=== PATIENT | female | born 1965 | race Caucasian/White ===

== ENCOUNTER → 2020-02-12 | Outpatient (CLI) | payer MEDICAID ==
[~2020-02-12] MED LIST: ALBU18HF2 IH; AMIT25TA9 PO; AMLO2.5T45 PO; ASPI-1497 PO; ATOR20TA65 PO; CALC-30 PO; CARV6.2548 PO; CEFAZOLIN SODIUM 1000MG/VIAL ONE; CEVI30CA7 PO; CLOP75TA4 PO; CYCL10TA7 PO; DEXAMETHASONE 4MG/ML 1ML VIAL ONE; DULO30CA2 PO; EPHEDRINE SULFATE 50MG/ML VIAL ONE; FENTANYL CITRATE/PF 50MCG/ML 2ML VIAL ONE; FLUT16SP15 NS; FLUT1AER IH; FOLI-43 PO; GABA-290 PO; GLYCOPYRROLATE 0.2 MG/ML 2ML VIAL ONE; HYDR12.54 PO; HYDROMORPHONE HCL/PF 2MG/ML (OR) ONE; INSU100I24 SQ; LABETALOL HCL 5MG/ML VIAL 20ML IV ONE; LIDOCAINE HCL/PF 1% 10 MG/ML 5ML VIAL ONE; MIDAZOLAM HCL 2 MG/2 ML VIAL ONE; MONT10TA26 PO; MULT-9 PO; NEOSTIGMINE METHYLSULFATE 1MG/ML 10 ML VIAL ONE; OMEG1CAP46 PO; OMEP20TA2 PO; ONDANSETRON HCL 4MG/2ML INJ ONE; PRED5TAB PO; PROPOFOL 200MG/20ML VIAL IV ONE; SITA100T11 PO; SODIUM CHLORIDE 0.9% 10ML VIAL ONE; [UNRECOGNIZED DRUG - REMARK] SUBCUT
== END | disposition home or self-care (01) ==
LOC: LAB 07:35
PROVIDERS: ATTEND Neurological Surgery
DX: Z01.818 Encounter for other preprocedural examination (principal); Z11.59 Encounter for screening for other viral diseases
CPT/HCPCS: C9803; U0003

== ENCOUNTER 2020-02-13 05:31 | Inpatient (IN) | payer MEDICAID ==
[2020-02-13] VITALS (34 sets, daily range): BP systolic 113–154; BP diastolic 42–97
[~2020-02-13] VITALS: Ht 160 cm; Wt 90.7 kg
[2020-02-13 06:20] LABS: BASOPHILS % 0.4 % (0.0-2.0); EOSINOPHILS % 2.5 % (0.0-5.0); LYMPHOCYTES % 21.5 % (20.0-50.0); MEAN CORPUSCULAR HEMOGLOBIN 27.4 pg (28.0-32.0); MEAN PLATELET VOLUME 8.3 fl (7.4-10.4); MONOCYTES % 6.1 % (2.0-8.0); NEUTROPHILS % 69.5 % (40.0-76.0); PLATELET 221 x1000/uL (130-400); RED BLOOD CELL COUNT 4.75 mill/uL (4.2-5.4); RED CELL DISTRIBUTION WIDTH 14.5 % (11.6-14.6)
[2020-02-13 06:29] LABS: INR 0.9; PARTIAL THROMBOPLASTIN TIME 25.4 sec (23.4-31.0)
[2020-02-13 06:39] LABS: CLARITY URINE CLEAR (CLEAR); COLOR URINE YELLOW (YELLOW); KETONES URINE TRACE (NEGATIVE); LEUKOCYTE ESTERASE URINE NEGATIVE (NEGATIVE); NITRITE URINE NEGATIVE (NEGATIVE); OCCULT BLOOD URINE NEGATIVE (NEGATIVE); PROTEIN URINE TRACE (NEGATIVE); SPECIFIC GRAVITY URINE 1.044 (1.005-1.030)
[2020-02-13 06:43] LABS: CHLORIDE 103 mEq/L (98-107)
[2020-02-13] MEDS ORDERED: THROMBIN (BOVINE) 5000 UNITS/VIAL TOP ONE (06:44)
[2020-02-13] MEDS ORDERED: LIDOCAINE HCL/EPINEPHRINE 1%-EPI 1:100,000 20 ML VIAL ONE ×2 (06:45→06:50)
[2020-02-13] MEDS ORDERED: BACITRACIN 50,000 UNITS/VIAL ONE (06:45)
[2020-02-13] MEDS ORDERED: DEXT 5%/0.45% NACL 500ML 500 ML IV ONE (07:00)
[2020-02-13] MEDS ORDERED: ROCURONIUM BROMIDE 10MG/ML VIAL 5ML IV ONE (07:04)
[2020-02-13] MEDS ORDERED: ALBUTEROL 90MCG/PUFF 17GM INHALER INH ONE (07:43)
[2020-02-13] MEDS ORDERED: LABETALOL 5MG/ML SYR 20 MG/4 ML SYRINGE IV PRN (08:30)
[2020-02-13] MEDS ORDERED: ONDANSETRON HCL 4MG/2ML INJ IV PRN (08:30)
[2020-02-13] MEDS ORDERED: MEPERIDINE HCL/PF 25MG/ML CPJ IV PRN (08:30)
[2020-02-13] MEDS ORDERED: HYDROMORPHONE HCL/PF 2MG/ML CPJ IV PRN (08:30)
[2020-02-13] MEDS ORDERED: ALBU18HF2 IH (09:19)
[2020-02-13] MEDS ORDERED: FLUT1AER IH (09:19)
[2020-02-13] MEDS ORDERED: [UNRECOGNIZED DRUG - REMARK] SUBCUT (09:19)
[2020-02-13] MEDS ORDERED: INSU100I24 SQ (09:19)
[2020-02-13] MEDS ORDERED: CLOP75TA4 PO (09:19)
[2020-02-13] MEDS ORDERED: GABA-290 PO (09:19)
[2020-02-13] MEDS ORDERED: ASPI-1497 PO (09:19)
[2020-02-13] MEDS ORDERED: PRED5TAB PO (09:19)
[2020-02-13] MEDS ORDERED: SITA100T11 PO (09:19)
[2020-02-13] MEDS ORDERED: CALC-30 PO (09:21)
[2020-02-13] MEDS ORDERED: OMEG1CAP46 PO (09:21)
[2020-02-13] MEDS ORDERED: OMEP20TA2 PO (09:26)
[2020-02-13] MEDS ORDERED: MONT10TA26 PO (09:26)
[2020-02-13] MEDS ORDERED: CEVI30CA7 PO (09:26)
[2020-02-13] MEDS ORDERED: DULO30CA2 PO (09:26)
[2020-02-13] MEDS ORDERED: FOLI-43 PO (09:26)
[2020-02-13] MEDS ORDERED: FLUT16SP15 NS (09:26)
[2020-02-13] MEDS ORDERED: HYDR12.54 PO (09:28)
[2020-02-13] MEDS ORDERED: AMLO2.5T45 PO (09:28)
[2020-02-13] MEDS ORDERED: CARV6.2548 PO (09:28)
[2020-02-13] MEDS ORDERED: ATOR20TA65 PO (09:28)
[2020-02-13] MEDS ORDERED: AMIT25TA9 PO (09:30)
[2020-02-13] MEDS ORDERED: MULT-9 PO (09:30)
[2020-02-13] MEDS ORDERED: CYCL10TA7 PO (09:30)
[2020-02-13] MEDS ORDERED: NICARDIPINE 100 MG in SODIUM CHLORIDE 0.9% 60 ML IV PRN (10:30)
[2020-02-13] MEDS ORDERED: IPRATROPIUM/ALBUTEROL 0.5-3(2.5)MG/3ML NEB HHN NR (10:45)
[2020-02-13] MEDS ORDERED: INSULIN LISPRO(HUMALOG)300 UNIT/3ML VIAL SUBCUT NR (11:00)
[2020-02-13] MEDS ORDERED: ONDANSETRON INJ IV PRN (11:15)
[2020-02-13] MEDS ORDERED: NALOXONE INJ IV PRN (11:15)
[2020-02-13] MEDS ORDERED: HYDROMORPHONE PCA 10MG/50ML IV PRN (11:15)
[2020-02-13] MEDS ORDERED: DEXTROSE 50% WATER 50ML SYRINGE IV PRN (12:45)
[2020-02-13] MEDS: BLOOD SUGAR DIAGNOSTIC STRIP TEST SCH ×3 (13:00→20:33)
[2020-02-13] MEDS ORDERED: INSULIN LISPRO 100 UNITS/ML SUBCUT NR (13:15)
[2020-02-13] MEDS: INSULIN LISPRO 100 UNITS/ML SUBCUT SCH ×3 (13:16→20:44)
[2020-02-13] MEDS ORDERED: CEFAZOLIN SODIUM 1000MG/VIAL IV SCH (14:00)
[2020-02-13] MEDS: MORPHINE SULFATE 4 MG/ML CPJ (NOT FOR IM USE) IV PRN ×2 (15:11→18:38)
[2020-02-13] MEDS: NICARDIPINE 100 MG in SODIUM CHLORIDE 0.9% 60 ML IV PRN ×2 (15:35→23:48)
[2020-02-13] MEDS ORDERED: IPRATROPIUM/ALBUTEROL 0.5-3(2.5)MG/3ML NEB HHN PRN (16:00)
[2020-02-13] MEDS: CEFAZOLIN 1000MG PREMIX 50 ML IV SCH ×2 (16:29→21:02)
[2020-02-13] MEDS ORDERED: POTASSIUM CHLORIDE 20MEQ TABLET SR PO NR (16:30)
[2020-02-13] MEDS ORDERED: PNEUMOCOCCAL 23-VAL P-SAC VAC 0.5 ML IM ONE (17:00)
[2020-02-13] MEDS: DULOXETINE HCL 30MG DR CAPSULE PO SCH (17:26)
[2020-02-13] MEDS: BUDESONIDE 0.5MG/2ML NEB HHN SCH (19:55)
[2020-02-13] MEDS: IPRATROPIUM/ALBUTEROL 0.5-3(2.5)MG/3ML NEB HHN SCH (19:55)
[2020-02-13] MEDS: CARVEDILOL 6.25 MG TABLET PO SCH (20:33)
[2020-02-13] MEDS: MONTELUKAST SODIUM 10MG TABLET PO SCH (20:33)
[2020-02-13] MEDS: ATORVASTATIN CALCIUM 20MG TABLET PO SCH (20:33)
[2020-02-13] MEDS: DEXT 5%/LACTATED RINGERS 1,000 ML IV SCH (20:56)
[2020-02-13] MEDS ORDERED: MONTELUKAST SODIUM 10MG TABLET PO SCH (21:00)
[2020-02-13] MEDS: INSULIN GLARGINE UD 100 UNITS/ML SYR SUBCUT SCH (21:03)
[2020-02-14] VITALS (59 sets, daily range): BP systolic 96–139; BP diastolic 50–88
[2020-02-14] MEDS: MORPHINE SULFATE 4 MG/ML CPJ (NOT FOR IM USE) IV PRN ×3 (01:36→20:38)
[2020-02-14] MEDS: IPRATROPIUM/ALBUTEROL 0.5-3(2.5)MG/3ML NEB HHN SCH ×4 (01:51→21:12)
[2020-02-14] MEDS: DEXT 5%/LACTATED RINGERS 1,000 ML IV SCH (05:47)
[2020-02-14] MEDS: OMEPRAZOLE 20MG CAPSULE EXTENDED RELEASE PO SCH (05:48)
[2020-02-14] MEDS: CEFAZOLIN 1000MG PREMIX 50 ML IV SCH ×3 (05:48→21:29)
[2020-02-14] MEDS: BLOOD SUGAR DIAGNOSTIC STRIP TEST SCH ×4 (05:48→20:39)
[2020-02-14] MEDS: NICARDIPINE 100 MG in SODIUM CHLORIDE 0.9% 60 ML IV PRN (06:15)
[2020-02-14] MEDS: INSULIN LISPRO 100 UNITS/ML SUBCUT SCH ×5 (06:16→21:32)
[2020-02-14] MEDS: BUDESONIDE 0.5MG/2ML NEB HHN SCH ×2 (08:41→21:09)
[2020-02-14] MEDS: AMITRIPTYLINE 25MG TABLET PO SCH (08:56)
[2020-02-14] MEDS: PREDNISONE 5MG TABLET PO SCH (08:57)
[2020-02-14] MEDS: CARVEDILOL 6.25 MG TABLET PO SCH ×2 (08:57→20:38)
[2020-02-14] MEDS: AMLODIPINE 2.5MG TABLET PO SCH (08:57)
[2020-02-14] MEDS: DULOXETINE HCL 30MG DR CAPSULE PO SCH ×2 (08:57→17:12)
[2020-02-14] MEDS: DOCUSATE SODIUM 100MG CAPSULE PO SCH ×2 (08:57→17:12)
[2020-02-14] MEDS: INSULIN GLARGINE UD 100 UNITS/ML SYR SUBCUT SCH ×2 (10:58→21:32)
[2020-02-14] MEDS ORDERED: FUROSEMIDE 20MG/2ML VIAL IV SCH (14:00)
[2020-02-14] MEDS: ATORVASTATIN CALCIUM 20MG TABLET PO SCH (20:35)
[2020-02-14] MEDS: MONTELUKAST SODIUM 10MG TABLET PO SCH (20:35)
[2020-02-15] VITALS: BP 100/53
[2020-02-15] MEDS: MORPHINE SULFATE 4 MG/ML CPJ (NOT FOR IM USE) IV PRN ×2 (00:38→10:46)
[2020-02-15] MEDS: IPRATROPIUM/ALBUTEROL 0.5-3(2.5)MG/3ML NEB HHN SCH ×5 (01:12→22:00)
[2020-02-15 04:00] VITALS: BP 111/53
[2020-02-15] MEDS: CEFAZOLIN 1000MG PREMIX 50 ML IV SCH ×2 (06:12→13:03)
[2020-02-15] MEDS: OMEPRAZOLE 20MG CAPSULE EXTENDED RELEASE PO SCH (06:37)
[2020-02-15] MEDS: BLOOD SUGAR DIAGNOSTIC STRIP TEST SCH ×4 (06:37→20:55)
[2020-02-15 06:46] LABS: CHLORIDE 104 mEq/L (98-107)
[2020-02-15 06:56] LABS: BASOPHILS % 0.2 % (0.0-2.0); EOSINOPHILS % 0.2 % (0.0-5.0); HEMOGLOBIN. 10.8 g/dL (12.0-16.0); LYMPHOCYTES % 13.1 % (20.0-50.0); MEAN CORPUSCULAR HEMOGLOBIN 27.5 pg (28.0-32.0); MEAN CORPUSCULAR VOLUME 81.7 fL (81.0-99.0); MEAN PLATELET VOLUME 8.4 fl (7.4-10.4); MONOCYTES % 5.4 % (2.0-8.0); NEUTROPHILS % 81.1 % (40.0-76.0); PLATELET 167 x1000/uL (130-400); RED BLOOD CELL COUNT 3.92 mill/uL (4.2-5.4); RED CELL DISTRIBUTION WIDTH 14.4 % (11.6-14.6)
[2020-02-15] MEDS: BUDESONIDE 0.5MG/2ML NEB HHN SCH ×3 (07:25→22:00)
[2020-02-15] MEDS: INSULIN LISPRO 100 UNITS/ML SUBCUT SCH ×4 (07:50→21:27)
[2020-02-15 08:00] VITALS: BP 104/59
[2020-02-15] MEDS: DULOXETINE HCL 30MG DR CAPSULE PO SCH ×2 (08:46→16:39)
[2020-02-15] MEDS: DOCUSATE SODIUM 100MG CAPSULE PO SCH ×2 (08:46→16:39)
[2020-02-15] MEDS: PREDNISONE 5MG TABLET PO SCH (08:46)
[2020-02-15] MEDS: AMLODIPINE 2.5MG TABLET PO SCH (08:49)
[2020-02-15] MEDS: CARVEDILOL 6.25 MG TABLET PO SCH ×2 (08:50→20:56)
[2020-02-15] MEDS: INSULIN GLARGINE UD 100 UNITS/ML SYR SUBCUT SCH ×2 (10:42→21:27)
[2020-02-15] MEDS: AMITRIPTYLINE 25MG TABLET PO SCH (10:42)
[2020-02-15] MEDS ORDERED: POTASSIUM CHLORIDE 20MEQ/PACKET PO NR (11:30)
[2020-02-15 12:00] VITALS: BP 134/64
[2020-02-15] MEDS ORDERED: INSULIN GLARGINE UD 100 UNITS/ML SYR SUBCUT NR (12:00)
[2020-02-15 16:00] VITALS: BP 123/70
[2020-02-15 20:00] VITALS: BP 126/63
[2020-02-15] MEDS: FAMOTIDINE 20MG TABLET PO SCH (20:56)
[2020-02-15] MEDS: MONTELUKAST SODIUM 10MG TABLET PO SCH (20:56)
[2020-02-15] MEDS: ATORVASTATIN CALCIUM 20MG TABLET PO SCH (20:56)
[2020-02-16] VITALS: BP 114/58
[2020-02-16 04:00] VITALS: BP 125/66
[2020-02-16] MEDS: BLOOD SUGAR DIAGNOSTIC STRIP TEST SCH ×4 (05:16→20:40)
[2020-02-16] MEDS: INSULIN LISPRO 100 UNITS/ML SUBCUT SCH ×4 (06:11→21:27)
[2020-02-16 06:34] LABS: CHLORIDE 104 mEq/L (98-107)
[2020-02-16 06:44] LABS: BASOPHILS % 0.5 % (0.0-2.0); EOSINOPHILS % 1.9 % (0.0-5.0); HEMATOCRIT. 34.9 % (36.0-48.0); HEMOGLOBIN. 11.8 g/dL (12.0-16.0); LYMPHOCYTES % 22.5 % (20.0-50.0); MEAN CORPUSCULAR HEMOGLOBIN 27.6 pg (28.0-32.0); MEAN CORPUSCULAR VOLUME 81.4 fL (81.0-99.0); MEAN PLATELET VOLUME 8.5 fl (7.4-10.4); MONOCYTES % 5.8 % (2.0-8.0); NEUTROPHILS % 69.3 % (40.0-76.0); PLATELET 187 x1000/uL (130-400); RED BLOOD CELL COUNT 4.29 mill/uL (4.2-5.4); RED CELL DISTRIBUTION WIDTH 14.7 % (11.6-14.6)
[2020-02-16 08:00] VITALS: BP 119/68
[2020-02-16] MEDS: IPRATROPIUM/ALBUTEROL 0.5-3(2.5)MG/3ML NEB HHN SCH ×3 (08:10→20:40)
[2020-02-16] MEDS: DOCUSATE SODIUM 100MG CAPSULE PO SCH ×2 (08:31→16:51)
[2020-02-16] MEDS: FAMOTIDINE 20MG TABLET PO SCH ×2 (08:31→20:33)
[2020-02-16] MEDS: AMITRIPTYLINE 25MG TABLET PO SCH (08:31)
[2020-02-16] MEDS: PREDNISONE 5MG TABLET PO SCH (08:31)
[2020-02-16] MEDS: AMLODIPINE 2.5MG TABLET PO SCH (08:33)
[2020-02-16] MEDS: CARVEDILOL 6.25 MG TABLET PO SCH ×2 (08:33→20:34)
[2020-02-16] MEDS: DULOXETINE HCL 30MG DR CAPSULE PO SCH ×2 (08:34→16:51)
[2020-02-16] MEDS: INSULIN GLARGINE UD 100 UNITS/ML SYR SUBCUT SCH ×2 (10:37→21:24)
[2020-02-16] MEDS: BUDESONIDE 0.5MG/2ML NEB HHN SCH (11:10)
[2020-02-16] MEDS: MORPHINE SULFATE 4 MG/ML CPJ (NOT FOR IM USE) IV PRN (11:34)
[2020-02-16 11:51] VITALS: BP 124/68
[2020-02-16 16:00] VITALS: BP 131/79
[2020-02-16] MEDS ORDERED: DOCUSATE SODIUM 100MG CAPSULE PO SCH (17:00)
[2020-02-16] MEDS ORDERED: GUAIFENESIN 200MG/10ML SUGAR FREE UDC PO PRN (18:30)
[2020-02-16 20:00] VITALS: BP 131/66
[2020-02-16] MEDS: MONTELUKAST SODIUM 10MG TABLET PO SCH (20:33)
[2020-02-16] MEDS: ATORVASTATIN CALCIUM 20MG TABLET PO SCH (20:34)
[2020-02-16] MEDS: HYDROCODONE/ACETAMINOPHEN 5/325MG TABLET PO PRN (20:34)
[2020-02-16] MEDS: POLYETHYLENE GLYCOL 3350 (17GM) 1 DOSE PACK PO SCH (20:35)
[2020-02-16] MEDS: FLUTICASONE PROPIONATE 50MCG/SPRAY BOTTLE BOTHNSTRLS SCH (20:36)
[2020-02-17] VITALS: BP 115/65
[2020-02-17] MEDS: HYDROCODONE/ACETAMINOPHEN 5/325MG TABLET PO PRN ×4 (02:10→22:16)
[2020-02-17] MEDS: IPRATROPIUM/ALBUTEROL 0.5-3(2.5)MG/3ML NEB HHN SCH ×5 (02:29→20:03)
[2020-02-17 04:00] VITALS: BP 113/59
[2020-02-17] MEDS: INSULIN LISPRO 100 UNITS/ML SUBCUT SCH ×4 (07:36→21:00)
[2020-02-17] MEDS: BLOOD SUGAR DIAGNOSTIC STRIP TEST SCH ×4 (07:36→21:56)
[2020-02-17 08:00] VITALS: BP 100/52
[2020-02-17] MEDS: FAMOTIDINE 20MG TABLET PO SCH ×2 (08:32→22:00)
[2020-02-17] MEDS: PREDNISONE 5MG TABLET PO SCH (08:32)
[2020-02-17] MEDS: DULOXETINE HCL 30MG DR CAPSULE PO SCH ×2 (08:33→17:17)
[2020-02-17] MEDS: AMLODIPINE 2.5MG TABLET PO SCH (08:33)
[2020-02-17] MEDS: AMITRIPTYLINE 25MG TABLET PO SCH (08:33)
[2020-02-17] MEDS: DOCUSATE SODIUM 100MG CAPSULE PO SCH ×2 (08:33→17:17)
[2020-02-17] MEDS: CARVEDILOL 6.25 MG TABLET PO SCH ×2 (08:34→21:00)
[2020-02-17] MEDS: INSULIN GLARGINE UD 100 UNITS/ML SYR SUBCUT SCH ×2 (10:30→22:25)
[2020-02-17 12:00] VITALS: BP 115/60
[2020-02-17] MEDS ORDERED: BISACODYL 10MG SUPP PR PRN (12:15)
[2020-02-17] MEDS: LACTULOSE 20G/30ML UDC PO SCH ×3 (12:34→21:00)
[2020-02-17 16:00] VITALS: BP 143/68
[2020-02-17] MEDS ORDERED: CYCLOBENZAPRINE 10MG TABLET PO PRN (17:00)
[2020-02-17 20:00] VITALS: BP 104/57
[2020-02-17] MEDS: GABAPENTIN 300MG CAPSULE PO SCH (21:59)
[2020-02-17] MEDS: ATORVASTATIN CALCIUM 20MG TABLET PO SCH (21:59)
[2020-02-17] MEDS: FLUTICASONE PROPIONATE 50MCG/SPRAY BOTTLE BOTHNSTRLS SCH (21:59)
[2020-02-17] MEDS: MONTELUKAST SODIUM 10MG TABLET PO SCH (21:59)
[2020-02-17] MEDS: POLYETHYLENE GLYCOL 3350 (17GM) 1 DOSE PACK PO SCH (21:59)
[2020-02-17] MEDS ORDERED: LACTULOSE 20G/30ML UDC PO SCH (23:00)
[2020-02-18] VITALS (8 sets, daily range): BP systolic 101–124; BP diastolic 61–92
[2020-02-18] MEDS: IPRATROPIUM/ALBUTEROL 0.5-3(2.5)MG/3ML NEB HHN SCH ×2 (02:04→08:10)
[2020-02-18] MEDS: HYDROCODONE/ACETAMINOPHEN 5/325MG TABLET PO PRN ×3 (04:33→21:32)
[2020-02-18] MEDS: GABAPENTIN 300MG CAPSULE PO SCH ×3 (06:27→21:48)
[2020-02-18] MEDS: BLOOD SUGAR DIAGNOSTIC STRIP TEST SCH ×4 (06:35→21:34)
[2020-02-18] MEDS: INSULIN LISPRO 100 UNITS/ML SUBCUT SCH ×4 (07:50→21:00)
[2020-02-18] MEDS: AMITRIPTYLINE 25MG TABLET PO SCH (09:21)
[2020-02-18] MEDS: DOCUSATE SODIUM 100MG CAPSULE PO SCH ×2 (09:22→17:26)
[2020-02-18] MEDS: PREDNISONE 5MG TABLET PO SCH (09:22)
[2020-02-18] MEDS: AMLODIPINE 2.5MG TABLET PO SCH (09:22)
[2020-02-18] MEDS: CARVEDILOL 6.25 MG TABLET PO SCH ×2 (09:22→21:21)
[2020-02-18] MEDS: DULOXETINE HCL 30MG DR CAPSULE PO SCH ×2 (09:22→17:26)
[2020-02-18] MEDS: FAMOTIDINE 20MG TABLET PO SCH ×2 (09:22→21:20)
[2020-02-18] MEDS: INSULIN GLARGINE UD 100 UNITS/ML SYR SUBCUT SCH ×2 (10:46→21:48)
[2020-02-18] MEDS: FLUTICASONE PROPIONATE 50MCG/SPRAY BOTTLE BOTHNSTRLS SCH (21:19)
[2020-02-18] MEDS: ATORVASTATIN CALCIUM 20MG TABLET PO SCH (21:21)
[2020-02-18] MEDS: MONTELUKAST SODIUM 10MG TABLET PO SCH (21:21)
[2020-02-18] MEDS: POLYETHYLENE GLYCOL 3350 (17GM) 1 DOSE PACK PO SCH (21:22)
[2020-02-19] MEDS ORDERED: IPRATROPIUM/ALBUTEROL 0.5-3(2.5)MG/3ML NEB HHN SCH (09:00)
== END 2020-02-18 22:23 | DRG 304 ==
LOC: OR 05:31 → MICUNO 05:32 → EDUNIT# 07:00 → 6EST 02-14 17:26
PROVIDERS: ADMIT Internal Medicine; ATTEND Internal Medicine
PROC: 0SG00J1 Fusion of Lumbar Vertebral Joint with Synthetic Substitute, Posterior Approach, Posterior Column, Open Approach (ICD-10-PCS; principal; 2020-02-13)
PROC: 01NB0ZZ Release Lumbar Nerve, Open Approach (ICD-10-PCS; 2020-02-13)
PROC: 5A09357 Assistance with Respiratory Ventilation, Less than 24 Consecutive Hours, Continuous Positive Airway Pressure (ICD-10-PCS; 2020-02-15)
DX: M48.061 Spinal stenosis, lumbar region without neurogenic claudication (principal); M47.26 Other spondylosis with radiculopathy, lumbar region; J45.901 Unspecified asthma with (acute) exacerbation; E11.42 Type 2 diabetes mellitus with diabetic polyneuropathy; M32.9 Systemic lupus erythematosus, unspecified; I11.0 Hypertensive heart disease with heart failure; B19.20 Unspecified viral hepatitis C without hepatic coma; R53.81 Other malaise; R26.9 Unspecified abnormalities of gait and mobility; J96.01 Acute respiratory failure with hypoxia; E87.6 Hypokalemia; J98.11 Atelectasis; G89.4 Chronic pain syndrome; M43.16 Spondylolisthesis, lumbar region; I50.9 Heart failure, unspecified; Z79.4 Long term (current) use of insulin; Z87.891 Personal history of nicotine dependence; Z90.49 Acquired absence of other specified parts of digestive tract; Z79.82 Long term (current) use of aspirin; Z82.49 Family history of ischemic heart disease and other diseases of the circulatory system; Z83.3 Family history of diabetes mellitus
CPT/HCPCS: 36415; 71045; 72100; 76000; 80048; 80053; 80061; 81003; 82962; 83036; 83880; 85025; 86850; 86900; 88305; 93005; 94640; 95863; 95925; 95926; 95928; 95929; 95940; 97116; 97162; 97530; 97760; C1713; J0690; J1100; J1170; J1815; J1940; J2250; J2270; J2405; J2704; J2710; J3010; J3490; J7050; J7121; J7512; J7626

== ENCOUNTER 2020-02-18 22:28 | Inpatient (IN) | payer MEDICAID ==
[~2020-02-18] VITALS: Ht 160 cm; Wt 90.7 kg
[2020-02-18 22:28] VITALS: BP 102/48
[~2020-02-18 22:28] MED LIST changes: -CEFAZOLIN SODIUM 1000MG/VIAL ONE; -DEXAMETHASONE 4MG/ML 1ML VIAL ONE; -EPHEDRINE SULFATE 50MG/ML VIAL ONE; -FENTANYL CITRATE/PF 50MCG/ML 2ML VIAL ONE; -GLYCOPYRROLATE 0.2 MG/ML 2ML VIAL ONE; -HYDROMORPHONE HCL/PF 2MG/ML (OR) ONE; -LABETALOL HCL 5MG/ML VIAL 20ML IV ONE; -LIDOCAINE HCL/PF 1% 10 MG/ML 5ML VIAL ONE; -MIDAZOLAM HCL 2 MG/2 ML VIAL ONE; -NEOSTIGMINE METHYLSULFATE 1MG/ML 10 ML VIAL ONE; -ONDANSETRON HCL 4MG/2ML INJ ONE; -PROPOFOL 200MG/20ML VIAL IV ONE; -SODIUM CHLORIDE 0.9% 10ML VIAL ONE
[2020-02-18 22:46] VITALS: BP 102/48
[2020-02-19] MEDS ORDERED: DEXTROSE 50% WATER 50ML SYRINGE IV PRN
[2020-02-19] MEDS ORDERED: IPRATROPIUM/ALBUTEROL 0.5-3(2.5)MG/3ML NEB HHN PRN
[2020-02-19] MEDS ORDERED: BISACODYL 10MG SUPP PR PRN
[2020-02-19] MEDS ORDERED: GUAIFENESIN 200MG/10ML SUGAR FREE UDC PO PRN
[2020-02-19] MEDS: IPRATROPIUM/ALBUTEROL 0.5-3(2.5)MG/3ML NEB HHN SCH ×3 (01:55→21:45)
[2020-02-19] MEDS: HYDROCODONE/ACETAMINOPHEN 5/325MG TABLET PO PRN ×4 (05:47→21:40)
[2020-02-19] MEDS: BLOOD SUGAR DIAGNOSTIC STRIP TEST SCH ×4 (07:02→21:45)
[2020-02-19] MEDS: GABAPENTIN 300MG CAPSULE PO SCH ×3 (07:02→22:52)
[2020-02-19 07:18] LABS: CHLORIDE 102 mEq/L (98-107)
[2020-02-19 07:42] VITALS: BP 102/59
[2020-02-19 07:43] LABS: BASOPHILS % 0.3 % (0.0-2.0); EOSINOPHILS % 3.1 % (0.0-5.0); HEMATOCRIT. 32.5 % (36.0-48.0); HEMOGLOBIN. 10.9 g/dL (12.0-16.0); LYMPHOCYTES % 20.6 % (20.0-50.0); MEAN CORPUSCULAR VOLUME 80.8 fL (81.0-99.0); MEAN PLATELET VOLUME 8.8 fl (7.4-10.4); MONOCYTES % 7.4 % (2.0-8.0); NEUTROPHILS % 68.6 % (40.0-76.0); PLATELET 244 x1000/uL (130-400); RED BLOOD CELL COUNT 4.02 mill/uL (4.2-5.4); RED CELL DISTRIBUTION WIDTH 14.6 % (11.6-14.6)
[2020-02-19] MEDS: FAMOTIDINE 20MG TABLET PO SCH ×2 (08:28→21:39)
[2020-02-19] MEDS: CARVEDILOL 6.25 MG TABLET PO SCH ×2 (08:29→22:53)
[2020-02-19] MEDS: AMLODIPINE 2.5MG TABLET PO SCH (08:29)
[2020-02-19] MEDS: DOCUSATE SODIUM 100MG CAPSULE PO SCH ×2 (08:29→17:35)
[2020-02-19] MEDS: CYCLOBENZAPRINE 10MG TABLET PO SCH (08:29)
[2020-02-19] MEDS: INSULIN LISPRO 100 UNITS/ML SUBCUT SCH ×4 (08:30→23:16)
[2020-02-19] MEDS ORDERED: PREDNISONE 5MG TABLET PO SCH (09:00)
[2020-02-19] MEDS ORDERED: AMITRIPTYLINE 50MG TABLET PO SCH (09:00)
[2020-02-19] MEDS: INSULIN GLARGINE UD 100 UNITS/ML SYR SUBCUT SCH ×2 (10:00→23:14)
[2020-02-19] MEDS: DULOXETINE HCL 30MG DR CAPSULE PO SCH ×2 (11:32→17:35)
[2020-02-19] MEDS: AMITRIPTYLINE 25MG TABLET PO SCH (11:35)
[2020-02-19] MEDS ORDERED: POTASSIUM CHLORIDE 20MEQ TABLET SR PO SCH (14:30)
[2020-02-19] MEDS: BUDESONIDE 0.5MG/2ML NEB HHN SCH ×2 (14:41→21:40)
[2020-02-19] MEDS: BISACODYL 5MG TABLET PO PRN ×2 (17:34→21:41)
[2020-02-19 20:00] VITALS: BP 125/61
[2020-02-19] MEDS: MONTELUKAST SODIUM 10MG TABLET PO SCH (21:41)
[2020-02-19] MEDS: ATORVASTATIN CALCIUM 20MG TABLET PO SCH (21:41)
[2020-02-19] MEDS: FLUTICASONE PROPIONATE 50MCG/SPRAY BOTTLE BOTHNSTRLS SCH (21:44)
[2020-02-19] MEDS: POLYETHYLENE GLYCOL 3350 (17GM) 1 DOSE PACK PO SCH (21:44)
[2020-02-20] MEDS: HYDROCODONE/ACETAMINOPHEN 5/325MG TABLET PO PRN ×3 (04:53→21:15)
[2020-02-20] MEDS: GABAPENTIN 300MG CAPSULE PO SCH ×3 (06:16→21:14)
[2020-02-20] MEDS: BLOOD SUGAR DIAGNOSTIC STRIP TEST SCH ×4 (06:18→20:47)
[2020-02-20] MEDS: INSULIN LISPRO 100 UNITS/ML SUBCUT SCH ×4 (06:18→21:14)
[2020-02-20 06:56] LABS: BASOPHILS % 0.6 % (0.0-2.0); EOSINOPHILS % 4.2 % (0.0-5.0); HEMATOCRIT. 32.8 % (36.0-48.0); LYMPHOCYTES % 22.4 % (20.0-50.0); MEAN CORPUSCULAR HEMOGLOBIN 27.4 pg (28.0-32.0); MEAN CORPUSCULAR VOLUME 81.5 fL (81.0-99.0); MEAN PLATELET VOLUME 8.4 fl (7.4-10.4); MONOCYTES % 6.8 % (2.0-8.0); PLATELET 254 x1000/uL (130-400); RED BLOOD CELL COUNT 4.02 mill/uL (4.2-5.4); RED CELL DISTRIBUTION WIDTH 14.2 % (11.6-14.6)
[2020-02-20 07:21] LABS: FERRITIN 62 ng/mL (10-291)
[2020-02-20 07:30] LABS: CHLORIDE 106 mEq/L (98-107)
[2020-02-20 07:31] LABS: FOLIC ACID (FOLATE) SERUM >20 ng/mL ng/mL (>5.38)
[2020-02-20 07:35] LABS: PHOSPHORUS 3.4 mg/dL (2.5-4.9)
[2020-02-20 07:36] LABS: TOTAL IRON BINDING CAPACITY 274 ug/dL (250-450)
[2020-02-20 07:43] LABS: VITAMIN B12 SERUM 550 pg/mL (211-911)
[2020-02-20 07:54] VITALS: BP 112/69
[2020-02-20] MEDS: AMITRIPTYLINE 25MG TABLET PO SCH (08:17)
[2020-02-20] MEDS: CYCLOBENZAPRINE 10MG TABLET PO SCH (08:17)
[2020-02-20] MEDS: AMLODIPINE 2.5MG TABLET PO SCH (08:17)
[2020-02-20] MEDS: FAMOTIDINE 20MG TABLET PO SCH ×2 (08:17→20:47)
[2020-02-20] MEDS: DULOXETINE HCL 30MG DR CAPSULE PO SCH ×2 (08:18→16:42)
[2020-02-20] MEDS: HYDROCODONE/ACETAMINOPHEN 10/325MG TABLET PO PRN (08:18)
[2020-02-20] MEDS: CARVEDILOL 6.25 MG TABLET PO SCH ×2 (08:18→20:47)
[2020-02-20] MEDS: DOCUSATE SODIUM 100MG CAPSULE PO SCH ×2 (08:18→16:42)
[2020-02-20] MEDS: BUDESONIDE 0.5MG/2ML NEB HHN SCH ×2 (10:02→20:35)
[2020-02-20] MEDS: IPRATROPIUM/ALBUTEROL 0.5-3(2.5)MG/3ML NEB HHN SCH ×2 (10:04→20:35)
[2020-02-20] MEDS: INSULIN GLARGINE UD 100 UNITS/ML SYR SUBCUT SCH ×2 (11:28→22:04)
[2020-02-20] MEDS ORDERED: NA PHOS,M-B/NA PHOS,DI-BA ENEMA 118ML PR PRN (12:45)
[2020-02-20] MEDS: CYANOCOBALAMIN 1000MCG/ML VIAL IM SCH (16:42)
[2020-02-20] MEDS: FERROUS SULFATE 325MG TABLET PO SCH (16:43)
[2020-02-20 20:00] VITALS: BP 114/54
[2020-02-20] MEDS: FLUTICASONE PROPIONATE 50MCG/SPRAY BOTTLE BOTHNSTRLS SCH (20:46)
[2020-02-20] MEDS: MONTELUKAST SODIUM 10MG TABLET PO SCH (20:47)
[2020-02-20] MEDS: ATORVASTATIN CALCIUM 20MG TABLET PO SCH (20:47)
[2020-02-20] MEDS: POLYETHYLENE GLYCOL 3350 (17GM) 1 DOSE PACK PO SCH (20:56)
[2020-02-20 23:58] LABS: CLARITY URINE CLEAR (CLEAR); COLOR URINE YELLOW (YELLOW); KETONES URINE NEGATIVE (NEGATIVE); LEUKOCYTE ESTERASE URINE TRACE (NEGATIVE); NITRITE URINE NEGATIVE (NEGATIVE); OCCULT BLOOD URINE NEGATIVE (NEGATIVE); PH URINE 5.5 (4.5-8.0); PROTEIN URINE NEGATIVE (NEGATIVE)
[2020-02-21] MEDS: GABAPENTIN 300MG CAPSULE PO SCH ×3 (05:39→21:03)
[2020-02-21] MEDS: HYDROCODONE/ACETAMINOPHEN 10/325MG TABLET PO PRN ×2 (05:40→20:54)
[2020-02-21] MEDS: BLOOD SUGAR DIAGNOSTIC STRIP TEST SCH ×4 (05:40→20:52)
[2020-02-21] MEDS: INSULIN LISPRO 100 UNITS/ML SUBCUT SCH ×4 (05:45→21:27)
[2020-02-21 08:00] VITALS: BP 112/63
[2020-02-21] MEDS: FAMOTIDINE 20MG TABLET PO SCH ×2 (09:37→20:52)
[2020-02-21] MEDS: DULOXETINE HCL 30MG DR CAPSULE PO SCH ×2 (09:37→16:41)
[2020-02-21] MEDS: DOCUSATE SODIUM 100MG CAPSULE PO SCH ×2 (09:37→16:41)
[2020-02-21] MEDS: CARVEDILOL 6.25 MG TABLET PO SCH ×2 (09:37→20:52)
[2020-02-21] MEDS: ASCORBIC ACID 500 MG TABLET PO SCH (09:37)
[2020-02-21] MEDS: FERROUS SULFATE 325MG TABLET PO SCH ×3 (09:37→16:41)
[2020-02-21] MEDS: CYCLOBENZAPRINE 10MG TABLET PO SCH (09:37)
[2020-02-21] MEDS: CYANOCOBALAMIN 1000MCG/ML VIAL IM SCH (09:38)
[2020-02-21] MEDS: AMITRIPTYLINE 25MG TABLET PO SCH (09:38)
[2020-02-21] MEDS: AMLODIPINE 2.5MG TABLET PO SCH (09:38)
[2020-02-21] MEDS: INSULIN GLARGINE UD 100 UNITS/ML SYR SUBCUT SCH ×2 (11:08→21:27)
[2020-02-21] MEDS: HYDROCODONE/ACETAMINOPHEN 5/325MG TABLET PO PRN (12:02)
[2020-02-21] MEDS ORDERED: BUDESONIDE 0.5MG/2ML NEB HHN PRN (15:00)
[2020-02-21 20:00] VITALS: BP 114/62
[2020-02-21] MEDS: FLUTICASONE PROPIONATE 50MCG/SPRAY BOTTLE BOTHNSTRLS SCH (20:16)
[2020-02-21] MEDS: POLYETHYLENE GLYCOL 3350 (17GM) 1 DOSE PACK PO SCH (20:52)
[2020-02-21] MEDS: ATORVASTATIN CALCIUM 20MG TABLET PO SCH (20:52)
[2020-02-21] MEDS: MONTELUKAST SODIUM 10MG TABLET PO SCH (20:59)
[2020-02-22] MEDS: BLOOD SUGAR DIAGNOSTIC STRIP TEST SCH ×4 (06:22→20:39)
[2020-02-22] MEDS: GABAPENTIN 300MG CAPSULE PO SCH ×3 (06:22→21:17)
[2020-02-22] MEDS: AMITRIPTYLINE 25MG TABLET PO SCH (07:59)
[2020-02-22 08:00] VITALS: BP 101/60
[2020-02-22] MEDS: CYCLOBENZAPRINE 10MG TABLET PO SCH (08:00)
[2020-02-22] MEDS: AMLODIPINE 2.5MG TABLET PO SCH (08:00)
[2020-02-22] MEDS: DOCUSATE SODIUM 100MG CAPSULE PO SCH ×2 (08:00→16:54)
[2020-02-22] MEDS: FAMOTIDINE 20MG TABLET PO SCH ×2 (08:00→20:39)
[2020-02-22] MEDS: CYANOCOBALAMIN 1000MCG/ML VIAL IM SCH (08:01)
[2020-02-22] MEDS: CARVEDILOL 6.25 MG TABLET PO SCH ×2 (08:01→20:38)
[2020-02-22] MEDS: ASCORBIC ACID 500 MG TABLET PO SCH (08:01)
[2020-02-22] MEDS: FERROUS SULFATE 325MG TABLET PO SCH ×3 (08:01→16:54)
[2020-02-22] MEDS: HYDROCODONE/ACETAMINOPHEN 5/325MG TABLET PO PRN (08:02)
[2020-02-22] MEDS: DULOXETINE HCL 30MG DR CAPSULE PO SCH ×2 (08:02→16:55)
[2020-02-22] MEDS: INSULIN LISPRO 100 UNITS/ML SUBCUT SCH ×4 (08:03→21:43)
[2020-02-22] MEDS: INSULIN GLARGINE UD 100 UNITS/ML SYR SUBCUT SCH ×2 (10:47→21:43)
[2020-02-22] MEDS: HYDROCODONE/ACETAMINOPHEN 10/325MG TABLET PO PRN ×2 (11:53→20:40)
[2020-02-22] MEDS: BISACODYL 5MG TABLET PO PRN (13:34)
[2020-02-22] MEDS: LACTULOSE 20G/30ML UDC PO SCH ×2 (15:02→16:54)
[2020-02-22 20:00] VITALS: BP 117/55
[2020-02-22] MEDS: ATORVASTATIN CALCIUM 20MG TABLET PO SCH (20:38)
[2020-02-22] MEDS: FLUTICASONE PROPIONATE 50MCG/SPRAY BOTTLE BOTHNSTRLS SCH (20:38)
[2020-02-22] MEDS: MONTELUKAST SODIUM 10MG TABLET PO SCH (20:39)
[2020-02-22] MEDS: POLYETHYLENE GLYCOL 3350 (17GM) 1 DOSE PACK PO SCH (20:39)
[2020-02-23] MEDS: GABAPENTIN 300MG CAPSULE PO SCH ×3 (06:12→21:13)
[2020-02-23] MEDS: BLOOD SUGAR DIAGNOSTIC STRIP TEST SCH ×4 (06:13→21:13)
[2020-02-23] MEDS: INSULIN LISPRO 100 UNITS/ML SUBCUT SCH ×4 (06:14→21:21)
[2020-02-23] MEDS: HYDROCODONE/ACETAMINOPHEN 10/325MG TABLET PO PRN ×2 (06:44→15:33)
[2020-02-23 06:55] LABS: CHLORIDE 105 mEq/L (98-107)
[2020-02-23 07:11] LABS: BASOPHILS % 0.7 % (0.0-2.0); HEMATOCRIT. 32.4 % (36.0-48.0); HEMOGLOBIN. 10.6 g/dL (12.0-16.0); LYMPHOCYTES % 26.6 % (20.0-50.0); MEAN CORPUSCULAR HEMOGLOBIN 26.8 pg (28.0-32.0); MEAN CORPUSCULAR VOLUME 81.9 fL (81.0-99.0); MEAN PLATELET VOLUME 8.4 fl (7.4-10.4); MONOCYTES % 7.6 % (2.0-8.0); NEUTROPHILS % 60.1 % (40.0-76.0); PLATELET 289 x1000/uL (130-400); RED BLOOD CELL COUNT 3.95 mill/uL (4.2-5.4); RED CELL DISTRIBUTION WIDTH 14.5 % (11.6-14.6)
[2020-02-23 07:56] VITALS: BP 122/62
[2020-02-23] MEDS: DOCUSATE SODIUM 100MG CAPSULE PO SCH ×2 (09:00→16:51)
[2020-02-23] MEDS: CYCLOBENZAPRINE 10MG TABLET PO SCH (09:10)
[2020-02-23] MEDS: FAMOTIDINE 20MG TABLET PO SCH ×2 (09:10→21:13)
[2020-02-23] MEDS: AMLODIPINE 2.5MG TABLET PO SCH (09:10)
[2020-02-23] MEDS: FERROUS SULFATE 325MG TABLET PO SCH ×3 (09:10→16:51)
[2020-02-23] MEDS: CARVEDILOL 6.25 MG TABLET PO SCH ×2 (09:11→21:00)
[2020-02-23] MEDS: ASCORBIC ACID 500 MG TABLET PO SCH (09:11)
[2020-02-23] MEDS: DULOXETINE HCL 30MG DR CAPSULE PO SCH ×2 (09:11→16:51)
[2020-02-23] MEDS: AMITRIPTYLINE 25MG TABLET PO SCH (09:11)
[2020-02-23] MEDS: INSULIN GLARGINE UD 100 UNITS/ML SYR SUBCUT SCH ×2 (10:06→21:21)
[2020-02-23 20:00] VITALS: BP 97/53
[2020-02-23] MEDS: ATORVASTATIN CALCIUM 20MG TABLET PO SCH (21:13)
[2020-02-23] MEDS: MONTELUKAST SODIUM 10MG TABLET PO SCH (21:13)
[2020-02-23] MEDS: POLYETHYLENE GLYCOL 3350 (17GM) 1 DOSE PACK PO SCH (21:13)
[2020-02-24] MEDS ORDERED: HYDROCODONE/ACETAMINOPHEN 5/325MG TABLET PO PRN (04:15)
[2020-02-24] MEDS: BLOOD SUGAR DIAGNOSTIC STRIP TEST SCH ×4 (05:59→21:04)
[2020-02-24] MEDS: GABAPENTIN 300MG CAPSULE PO SCH ×3 (05:59→20:55)
[2020-02-24] MEDS: INSULIN LISPRO 100 UNITS/ML SUBCUT SCH ×4 (06:05→21:15)
[2020-02-24 07:45] VITALS: BP 120/67
[2020-02-24] MEDS: ASCORBIC ACID 500 MG TABLET PO SCH (09:33)
[2020-02-24] MEDS: FAMOTIDINE 20MG TABLET PO SCH ×2 (09:34→20:55)
[2020-02-24] MEDS: AMITRIPTYLINE 25MG TABLET PO SCH (09:35)
[2020-02-24] MEDS: FERROUS SULFATE 325MG TABLET PO SCH ×3 (09:36→16:43)
[2020-02-24] MEDS: DOCUSATE SODIUM 100MG CAPSULE PO SCH ×2 (09:36→16:41)
[2020-02-24] MEDS: CYCLOBENZAPRINE 10MG TABLET PO SCH (09:36)
[2020-02-24] MEDS: DULOXETINE HCL 30MG DR CAPSULE PO SCH ×2 (09:37→16:41)
[2020-02-24] MEDS: CARVEDILOL 6.25 MG TABLET PO SCH ×2 (09:37→20:54)
[2020-02-24 09:45] VITALS: BP 101/63
[2020-02-24] MEDS: INSULIN GLARGINE UD 100 UNITS/ML SYR SUBCUT SCH ×2 (09:50→22:03)
[2020-02-24] MEDS: AMLODIPINE 2.5MG TABLET PO SCH (09:59)
[2020-02-24] MEDS: HYDROCODONE/ACETAMINOPHEN 5/325MG TABLET PO PRN ×2 (11:47→21:04)
[2020-02-24 20:00] VITALS: BP 119/78
[2020-02-24] MEDS: POLYETHYLENE GLYCOL 3350 (17GM) 1 DOSE PACK PO SCH (20:55)
[2020-02-24] MEDS: MONTELUKAST SODIUM 10MG TABLET PO SCH (20:55)
[2020-02-24] MEDS: ATORVASTATIN CALCIUM 20MG TABLET PO SCH (20:55)
[2020-02-25] MEDS: BISACODYL 5MG TABLET PO PRN (04:26)
[2020-02-25] MEDS: GABAPENTIN 300MG CAPSULE PO SCH ×3 (06:07→21:22)
[2020-02-25] MEDS: BLOOD SUGAR DIAGNOSTIC STRIP TEST SCH ×4 (06:07→21:22)
[2020-02-25] MEDS: HYDROCODONE/ACETAMINOPHEN 5/325MG TABLET PO PRN ×2 (06:13→17:23)
[2020-02-25] MEDS: INSULIN LISPRO 100 UNITS/ML SUBCUT SCH ×4 (06:24→21:46)
[2020-02-25 08:00] VITALS: BP 123/60
[2020-02-25] MEDS: FAMOTIDINE 20MG TABLET PO SCH ×2 (08:22→21:22)
[2020-02-25] MEDS: AMITRIPTYLINE 25MG TABLET PO SCH (08:22)
[2020-02-25] MEDS: CARVEDILOL 6.25 MG TABLET PO SCH ×2 (08:22→21:22)
[2020-02-25] MEDS: DULOXETINE HCL 30MG DR CAPSULE PO SCH ×2 (08:22→17:21)
[2020-02-25] MEDS: FERROUS SULFATE 325MG TABLET PO SCH ×3 (08:22→17:21)
[2020-02-25] MEDS: DOCUSATE SODIUM 100MG CAPSULE PO SCH ×2 (08:23→17:21)
[2020-02-25] MEDS: CYCLOBENZAPRINE 10MG TABLET PO SCH (08:23)
[2020-02-25] MEDS: ASCORBIC ACID 500 MG TABLET PO SCH (08:23)
[2020-02-25] MEDS: AMLODIPINE 2.5MG TABLET PO SCH (09:08)
[2020-02-25] MEDS: INSULIN GLARGINE UD 100 UNITS/ML SYR SUBCUT SCH ×2 (10:38→21:46)
[2020-02-25 17:10] VITALS: BP 118/77
[2020-02-25 20:00] VITALS: BP 120/79
[2020-02-25] MEDS: POLYETHYLENE GLYCOL 3350 (17GM) 1 DOSE PACK PO SCH (21:00)
[2020-02-25] MEDS: MONTELUKAST SODIUM 10MG TABLET PO SCH (21:22)
[2020-02-25] MEDS: ATORVASTATIN CALCIUM 20MG TABLET PO SCH (21:22)
[2020-02-26] MEDS: HYDROCODONE/ACETAMINOPHEN 5/325MG TABLET PO PRN ×2 (03:34→09:54)
[2020-02-26] MEDS: GABAPENTIN 300MG CAPSULE PO SCH ×3 (05:54→21:43)
[2020-02-26] MEDS: BLOOD SUGAR DIAGNOSTIC STRIP TEST SCH ×4 (05:54→21:43)
[2020-02-26 06:58] LABS: BASOPHILS % 0.5 % (0.0-2.0); EOSINOPHILS % 4.8 % (0.0-5.0); HEMATOCRIT. 34.5 % (36.0-48.0); HEMOGLOBIN. 11.4 g/dL (12.0-16.0); LYMPHOCYTES % 27.4 % (20.0-50.0); MEAN CORPUSCULAR HEMOGLOBIN 27.2 pg (28.0-32.0); MEAN CORPUSCULAR VOLUME 82.5 fL (81.0-99.0); NEUTROPHILS % 59.3 % (40.0-76.0); PLATELET 301 x1000/uL (130-400); RED BLOOD CELL COUNT 4.18 mill/uL (4.2-5.4); RED CELL DISTRIBUTION WIDTH 14.6 % (11.6-14.6)
[2020-02-26 07:05] LABS: CHLORIDE 109 mEq/L (98-107)
[2020-02-26 07:44] VITALS: BP 152/80
[2020-02-26] MEDS: DULOXETINE HCL 30MG DR CAPSULE PO SCH ×2 (08:22→16:46)
[2020-02-26] MEDS: BISACODYL 5MG TABLET PO PRN (08:22)
[2020-02-26] MEDS: ASCORBIC ACID 500 MG TABLET PO SCH (08:22)
[2020-02-26] MEDS: FAMOTIDINE 20MG TABLET PO SCH ×2 (08:22→21:43)
[2020-02-26] MEDS: DOCUSATE SODIUM 100MG CAPSULE PO SCH ×2 (08:22→16:46)
[2020-02-26] MEDS: FERROUS SULFATE 325MG TABLET PO SCH ×3 (08:23→16:46)
[2020-02-26] MEDS: AMITRIPTYLINE 25MG TABLET PO SCH (08:23)
[2020-02-26] MEDS: CARVEDILOL 6.25 MG TABLET PO SCH ×2 (08:23→21:43)
[2020-02-26] MEDS: CYCLOBENZAPRINE 10MG TABLET PO SCH (08:23)
[2020-02-26] MEDS: AMLODIPINE 2.5MG TABLET PO SCH (08:23)
[2020-02-26] MEDS: INSULIN LISPRO 100 UNITS/ML SUBCUT SCH ×4 (09:00→22:10)
[2020-02-26] MEDS: INSULIN GLARGINE UD 100 UNITS/ML SYR SUBCUT SCH ×2 (10:22→22:10)
[2020-02-26] MEDS ORDERED: FERR325T23 PO (12:19)
[2020-02-26] MEDS ORDERED: FAMO20TA8 PO (12:19)
[2020-02-26 17:06] LABS: 25-HYDROXY VITAMIN D3 22 ng/mL (.)
[2020-02-26 20:00] VITALS: BP 129/74
[2020-02-26] MEDS: MONTELUKAST SODIUM 10MG TABLET PO SCH (21:43)
[2020-02-26] MEDS: ATORVASTATIN CALCIUM 20MG TABLET PO SCH (21:43)
[2020-02-26] MEDS: POLYETHYLENE GLYCOL 3350 (17GM) 1 DOSE PACK PO SCH (21:43)
[2020-02-27] MEDS: GABAPENTIN 300MG CAPSULE PO SCH ×2 (02:57→13:01)
[2020-02-27] MEDS: BLOOD SUGAR DIAGNOSTIC STRIP TEST SCH ×2 (06:34→11:52)
[2020-02-27] MEDS: INSULIN LISPRO 100 UNITS/ML SUBCUT SCH ×2 (06:35→12:15)
[2020-02-27 08:01] VITALS: BP 126/79
[2020-02-27] MEDS: AMITRIPTYLINE 25MG TABLET PO SCH (08:55)
[2020-02-27] MEDS: AMLODIPINE 2.5MG TABLET PO SCH (08:55)
[2020-02-27] MEDS: DULOXETINE HCL 30MG DR CAPSULE PO SCH (08:55)
[2020-02-27] MEDS: DOCUSATE SODIUM 100MG CAPSULE PO SCH (08:56)
[2020-02-27] MEDS: FERROUS SULFATE 325MG TABLET PO SCH ×2 (08:56→12:09)
[2020-02-27] MEDS: FAMOTIDINE 20MG TABLET PO SCH (08:56)
[2020-02-27] MEDS: CYCLOBENZAPRINE 10MG TABLET PO SCH (08:56)
[2020-02-27] MEDS: CARVEDILOL 6.25 MG TABLET PO SCH (08:56)
[2020-02-27] MEDS: ASCORBIC ACID 500 MG TABLET PO SCH (08:56)
[2020-02-27] MEDS: INSULIN GLARGINE UD 100 UNITS/ML SYR SUBCUT SCH (10:27)
[2020-02-27 10:33] VITALS: BP 126/79
[2020-02-27] MEDS ORDERED: FENTANYL CITRATE/PF 50MCG/ML 2ML VIAL ONE (11:26)
[2020-02-27] MEDS ORDERED: MIDAZOLAM HCL 2 MG/2 ML VIAL ONE (11:26)
[2020-02-27] MEDS ORDERED: IODIXANOL 320MG/ML 100 ML BOTTLE IV ONE (11:27)
[2020-02-27] MEDS ORDERED: VERAPAMIL HCL 2.5 MG/1 ML 2ML VIAL IV ONE (11:27)
[2020-02-27] MEDS ORDERED: LIDOCAINE HCL 1% 20ML VIAL (Pyxis) INJ ONE (11:27)
[2020-02-27] MEDS ORDERED: ERGOCALCIFEROL 50000UNITS CAPSULE PO NR (12:00)
== END 2020-02-27 14:20 | disposition home health service (06) | DRG 347 ==
PROVIDERS: ADMIT Physical Medicine & Rehabilitation Spinal Cord Injury Medicine; ATTEND Internal Medicine
DX: M48.061 Spinal stenosis, lumbar region without neurogenic claudication (principal); B19.20 Unspecified viral hepatitis C without hepatic coma; M47.816 Spondylosis without myelopathy or radiculopathy, lumbar region; E11.9 Type 2 diabetes mellitus without complications; E61.1 Iron deficiency; E87.6 Hypokalemia; G82.20 Paraplegia, unspecified; G89.4 Chronic pain syndrome; J45.901 Unspecified asthma with (acute) exacerbation; J98.11 Atelectasis; K59.00 Constipation, unspecified; M32.9 Systemic lupus erythematosus, unspecified; M47.16 Other spondylosis with myelopathy, lumbar region; R09.02 Hypoxemia; E55.9 Vitamin D deficiency, unspecified; G47.33 Obstructive sleep apnea (adult) (pediatric); R26.9 Unspecified abnormalities of gait and mobility; R53.81 Other malaise; I11.0 Hypertensive heart disease with heart failure; I50.40 Unspecified combined systolic (congestive) and diastolic (congestive) heart failure; Z72.0 Tobacco use; Z79.4 Long term (current) use of insulin; Z79.899 Other long term (current) drug therapy
CPT/HCPCS: 36415; 80048; 80053; 81003; 82306; 82607; 82728; 82746; 82962; 83540; 83550; 83735; 84100; 84134; 84443; 85025; 93970; 94640; 97110; 97116; 97162; 97166; 97530; 97535; J1644; J1815; J2250; J3010; J3420; J3490; J7512; J7626; Q9967

== ENCOUNTER 2024-02-21 19:57 | Emergency (ER) | payer MEDICAID ==
[~2024-02-21] VITALS: Ht 160 cm; Wt 82.0 kg
[~2024-02-21 19:57] MED LIST changes: +ACET325T52 MT; -ASPI-1497 PO; +CALC-1249 PO; -CALC-30 PO; -CLOP75TA4 PO; +CYCL10TA21 PO; -CYCL10TA7 PO; +FAMO20TA8 PO; +FERR325T23 PO; +HYDR-4001 MT; -HYDR12.54 PO; +METF-414 MT; +MONT-39 PO; -MONT10TA26 PO; -OMEP20TA2 PO
[2024-02-21 20:06] VITALS: O2SAT 100
[2024-02-21 20:24] LABS: BASOPHILS % 0.8 % (0.0-2.0); EOSINOPHILS % 3.5 % (0.0-5.0); HEMATOCRIT. 39.5 % (36.0-48.0); HEMOGLOBIN. 13.4 g/dL (12.0-16.0); LYMPHOCYTES % 31.2 % (20.0-50.0); MEAN CORPUSCULAR HEMOGLOBIN 28.5 pg (28.0-32.0); MEAN CORPUSCULAR HGB CONC 33.9 g/dL (31.0-37.0); MEAN CORPUSCULAR VOLUME 83.9 fL (81.0-99.0); MEAN PLATELET VOLUME 8.1 fl (7.4-10.4); MONOCYTES % 6.4 % (2.0-8.0); NEUTROPHILS % 58.1 % (40.0-76.0); PLATELET 202 x1000/uL (130-400); RED BLOOD CELL COUNT 4.71 mill/uL (4.2-5.4); RED CELL DISTRIBUTION WIDTH 13.8 % (11.6-14.6); WHITE BLOOD COUNT 3.8 x1000/uL (4.5-11.0)
[2024-02-21 20:28] LABS: POTASSIUM 3.5 mEq/L (3.5-5.1)
[2024-02-21 20:30] LABS: CALCIUM 9.5 mg/dL (8.7-10.4)
[2024-02-21 21:19] LABS: INR 0.9; PARTIAL THROMBOPLASTIN TIME 23.2 sec (23.4-31.0); PROTHROMBIN TIME 10.2 sec (9.6-11.0)
[2024-02-21 21:26] LABS: TROPONIN I HIGH SENSITIVITY < 4 ng/L (3.0-34)
[2024-02-21] MEDS ORDERED: XAR15 MT (23:08)
[2024-02-21 23:31] VITALS: BP 169/88; PULSE 86; RESP 20; TEMP 36.83628; O2SAT 100
[2024-02-22] MEDS ORDERED: RIVAROXABAN 15 MG TABLET PO SCH (17:00)
== END 2024-02-22 00:09 | disposition home or self-care (01) ==
LOC: ER 19:57
DX: M79.604 Pain in right leg (principal); M79.605 Pain in left leg; I11.0 Hypertensive heart disease with heart failure; I50.9 Heart failure, unspecified; E11.9 Type 2 diabetes mellitus without complications; M79.7 Fibromyalgia; Z90.49 Acquired absence of other specified parts of digestive tract; Z98.890 Other specified postprocedural states; Z79.899 Other long term (current) drug therapy
CPT/HCPCS: 36415; 71045; 80048; 83880; 84484; 85025; 93005; 93970; 99285